=== PATIENT | female | born 1965 | race African-American/Black ===

== ENCOUNTER 2024-01-15 13:12 | Outpatient (CLI) | payer BC | END 2024-01-15 13:13 | disposition home or self-care (01) | LOC: CSHMAMMO 13:12 | PROVIDERS: ATTEND Obstetrics & Gynecology | DX: R92.8 Other abnormal and inconclusive findings on diagnostic imaging of breast (principal) | CPT/HCPCS: G0279 ==

== ENCOUNTER → 2024-01-29 | Day surgery (SDC) | payer BC, OTHER | LOC: CSHULT 11:52 | PROVIDERS: ATTEND Obstetrics & Gynecology | PROC: 0H9T3ZX Drainage of Right Breast, Percutaneous Approach, Diagnostic (ICD-10-PCS; principal; 2024-01-29) | DX: C50.811 Malignant neoplasm of overlapping sites of right female breast (principal) | CPT/HCPCS: 19083; 88305 ==

== ENCOUNTER 2024-02-21 10:58 | Outpatient (CLI) | payer BC | END 2024-02-21 10:59 | disposition home or self-care (01) | LOC: CSHLAB 10:58 | PROVIDERS: ATTEND Surgery | DX: Z01.818 Encounter for other preprocedural examination (principal); C50.511 Malignant neoplasm of lower-outer quadrant of right female breast | CPT/HCPCS: 93005; 93010 ==

== ENCOUNTER 2024-02-25 06:21 | Day surgery (SDC) | payer BC ==
[2024-02-21 11:42] VITALS: BMI 38.2
[2024-02-25] MEDS ORDERED: PROPOFOL 20 ML ONE (08:11)
[2024-02-25] MEDS ORDERED: Dexamethasone 4 mg/ml Vial ONE (08:11)
[2024-02-25] MEDS ORDERED: ePHEDrine Sulfate 50 MG/10 ML VIAL ONE (08:11)
[2024-02-25] MEDS ORDERED: fentaNYL 50 mcg/mL 1 mL Vial ONE ×4 (08:11→09:34)
[2024-02-25] MEDS ORDERED: Ondansetron PF 4 MG/2 ML Vial ONE (08:11)
[2024-02-25] MEDS ORDERED: Isosulfan Blue 50 MG/5 ML VIAL ONE (08:11)
[2024-02-25] MEDS ORDERED: EPINEPHrine 1 MG/ML VIAL ONE (08:11)
[2024-02-25] MEDS ORDERED: Bupivacaine PF 0.5% 30 ML VIAL ONE (08:12)
[2024-02-25] MEDS ORDERED: CEFAZOLIN 2 GM VIAL ONE (08:22)
[2024-02-25] MEDS ORDERED: Ketorolac Tromethamine 30 MG (1 mL) VIAL ONE (09:37)
== END 2024-02-25 11:45 | disposition home or self-care (01) ==
LOC: CSHSDC 06:21
PROVIDERS: ATTEND Surgery
PROC: 0HBT0ZZ Excision of Right Breast, Open Approach (ICD-10-PCS; principal; 2024-02-25)
PROC: 07B50ZZ Excision of Right Axillary Lymphatic, Open Approach (ICD-10-PCS; principal; 2024-02-25)
DX: C50.811 Malignant neoplasm of overlapping sites of right female breast (principal); D36.0 Benign neoplasm of lymph nodes; I10 Essential (primary) hypertension; E66.01 Morbid (severe) obesity due to excess calories; Z87.891 Personal history of nicotine dependence; Z79.899 Other long term (current) drug therapy; Z68.37 Body mass index [BMI] 37.0-37.9, adult
CPT/HCPCS: 78195; 88305; 88307; A9541; C1713; J0171; J0665; J1100; J1885; J2405; J2704; J3010; Q9968